=== PATIENT | male | born 1995 | race Two or more races ===

== ENCOUNTER 2021-02-01 10:35 | Emergency (ER) | payer MEDICAID ==
[~2021-02-01] VITALS: Ht 170.2 cm; Wt 89.5 kg
[2021-02-01] MEDS ORDERED: CEFX2I IM (10:41)
[2021-02-01] MEDS ORDERED: MUPI1OIN5 TP (10:41)
[2021-02-01] MEDS ORDERED: [UNRECOGNIZED DRUG - OTHER] PO (10:41)
[2021-02-01] MEDS ORDERED: PIPERACILLIN/TAZO 3.375 GM/D5W 50 ML IV ONE (13:30)
[2021-02-01] MEDS ORDERED: 0.9% SODIUM CHLORIDE 10 ML SYRINGE IVP PRN (13:30)
[2021-02-01] MEDS ORDERED: VANCOMYCIN HCL 1 GM/D5% WATER 200 ML IV ONE (13:30)
[2021-02-01] MEDS ORDERED: KETOROLAC TROMETHAMINE 30 MG/ML VIAL IVP ONE (13:45)
[2021-02-01 14:31] LABS: BASOPHILS % (AUTO) 0.3 % (0.0-2.0); EOSINOPHILS % (AUTO) 3.5 % (1.0-6.0); HEMATOCRIT 37.3 % (41-53); HEMOGLOBIN 12.8 g/dL (13.5-17.5); LYMPHOCYTES # (AUTO) 1.3 K/uL (1.0-4.8); LYMPHOCYTES % (AUTO) 13.9 % (22.0-44.0); MEAN CORPUSCULAR HGB CONC 34.4 G/dL (31.0-37.0); MEAN CORPUSCULAR VOLUME 90 fL (80-100); MONOCYTES # (AUTO) 0.7 K/uL (0.1-1.0); MONOCYTES % (AUTO) 8.2 % (2.0-9.0); NEUTROPHILS # (AUTO) 6.8 K/uL (1.8-7.7); NEUTROPHILS % (AUTO) 74.1 % (40.0-70.0); PLATELET COUNT (AUTO) 287 K/uL (150-450); RED BLOOD CELL COUNT(AUTO) 4.13 MIL/uL (4.50-5.90); RED CELL DISTRIBUTION WIDTH 12.3 % (11.5-14.5)
[2021-02-01 14:32] LABS: ANION GAP 9 mmol/L (8-16); CALCIUM, TOTAL 9.2 mg/dL (8.8-10.5); CARBON DIOXIDE 28 mmol/L (22-29); CHLORIDE 102 mmol/L (98-107); CREATININE 0.89 mg/dL (0.60-1.30); GLOMERULAR FILTR. RATE CALC > 60 mL/min (>60); GLUCOSE,RANDOM 96 mg/dL (70-110); POTASSIUM 4.4 mmol/L (3.5-5.1); SODIUM SERUM 139 mmol/L (136-145); UREA NITROGEN, BLOOD 13 mg/dL (7-18)
[2021-02-01 14:37] LABS: ALANINE AMINOTRANSFERASE 54 U/L (12-78); ALBUMIN 3.1 g/dL (3.4-5.0); ALKALINE PHOSPHATASE 75 U/L (46-116); ASPARTATE AMINOTRANSFERASE 47 U/L (15-37); BILIRUBIN,TOTAL 0.5 mg/dL (0.1-1.0); TOTAL PROTEIN, SERUM 7.5 g/dL (6.4-8.2)
[2021-02-01 14:44] LABS: LACTIC ACID 0.4 mmol/L (0.4-2.0)
[2021-02-01] MEDS ORDERED: IOVERSOL 350 MG/ML 100 ML VIAL ONE (15:03)
[2021-02-01] MEDS ORDERED: SODIUM CHLORIDE 0.9% 100 ML ONE (15:03)
[2021-02-01 17:21] VITALS: BP 128/72
== END 2021-02-01 17:23 | disposition home or self-care (01) ==
LOC: EMS 10:43
DX: L03.211 Cellulitis of face (principal); L02.01 Cutaneous abscess of face; F17.210 Nicotine dependence, cigarettes, uncomplicated; Z79.899 Other long term (current) drug therapy
CPT/HCPCS: 36415; 70487; 80053; 83605; 85025; 87040; 96365; 96366; 96367; 96375; 99285; J1885; J2543; J3370; J7050; Q9967